=== PATIENT | male | born 1975 | race Asian ===

== ENCOUNTER 2018-11-02 22:40 | Emergency (ER) | payer SELFPAY, OTHER ==
[2018-11-02] MEDS: morphine 4 MG/ML VIAL IV (23:12)
[2018-11-02] MEDS: ONDANSETRON 4 MG INJ IV (23:12)
[2018-11-02] MEDS: CEFAZOLIN 1 GM/50 ML (PMX) 50 ML IVPB (23:18)
[2018-11-02] MEDS: SOD CHLORIDE 0.9% 1,000 ML IV (23:18)
[2018-11-03] MEDS: HYDROmorphONE 0.5 MG/0.5 ML SYG IV ×2 (02:14→04:56)
[2018-11-03] MEDS: morphine 4 MG/ML VIAL IV (02:15)
== END 2018-11-03 05:19 | disposition short-term general hospital (02) ==
LOC: E/R 22:40
DX: S02.412A LeFort II fracture, initial encounter for closed fracture (principal); S01.81XA Laceration without foreign body of other part of head, initial encounter; V00.831A Fall from motorized mobility scooter, initial encounter
CPT/HCPCS: 70450; 70486; 72125; 96374; 96375; 96376; 99285-25